=== PATIENT | female | born 1965 | race Two or more races ===

== ENCOUNTER 2017-05-20 11:48 | Outpatient (CLI) | payer OTHER ==
[~2017-05-20 11:48] MED LIST: AVAPRO150 MG PO; CYMBALTA60 MG PO; HYDRALAZINE HCL10 MG PO; NEURONTIN300 MG PO; NORVASC5 MG PO; WELLBUT PO; XANAX2 MG PO
== END 2017-05-20 11:55 | disposition home or self-care (01) ==
LOC: RAD 501 11:48
DX: M25.572 Pain in left ankle and joints of left foot (principal)

== ENCOUNTER 2017-10-07 14:30 | Outpatient (CLI) | payer OTHER | END 2017-10-07 15:21 | disposition home or self-care (01) | LOC: RAD 501 14:30 | DX: M79.672 Pain in left foot (principal); M54.5 Low back pain ==